=== PATIENT | male | born 1975 | race Caucasian/White ===

== ENCOUNTER 2017-11-30 17:28 | Emergency (ER) | payer BC, SELFPAY | END 2017-11-30 18:00 | disposition home or self-care (01) | LOC: ERS 17:28 | DX: F10.129 Alcohol abuse with intoxication, unspecified (principal); I10 Essential (primary) hypertension; F31.9 Bipolar disorder, unspecified; F41.9 Anxiety disorder, unspecified; F20.9 Schizophrenia, unspecified; F17.220 Nicotine dependence, chewing tobacco, uncomplicated; Z79.899 Other long term (current) drug therapy | CPT/HCPCS: 99283 ==

== ENCOUNTER 2017-12-16 06:56 | Observation (INO) | payer OTHER, SELFPAY ==
[2017-12-16] MEDS ORDERED: Morphine 4 MG/ML VIAL ONE ×2 (07:15→09:37)
[2017-12-16 07:18] LABS: #Lymphocytes 0.7 thou/uL (1.20-3.40); #Monocytes 0.3 thou/uL (0.11-0.59); #Neutrophils 5.7 thou/uL (1.40-6.50); %Basophils 0.2 % (0.0-1.0); %Eosinophils 0.7 % (0.0-10.0); %Lymphocytes 10.8 % (21.0-51.0); %Neutrophils 84.4 % (42.0-75.0); Hemoglobin 16.2 g/dL (14.0-18.0); Mean Corpuscular HGB CONC 33.3 g/dL (32.0-36.0); Mean Corpuscular Hemoglobin 34.5 pg (27.0-31.0); Mean Platelet Volume 7.9 fL (7.4-10.4); Platelet Count 260 thou/uL (130-400); RBC Distribution Width 11.7 % (11.5-14.5); Red Blood Cell (RBC) Count 4.69 mill/uL (4.70-6.10); White Blood Cell (WBC) Count 6.8 thou/uL (4.8-10.8)
[2017-12-16 07:37] LABS: ALT (SGPT) 274 U/L (8-55); AST (SGOT) 166 U/L (5-34); Albumin 4.4 g/dL (3.5-5.0); Alkaline Phosphatase 78 U/L (40-150); Anion Gap 18 mmol/L (10-20); BUN (Urea Nitrogen) 7 mg/dL (8.9-20.6); Bilirubin, Total 0.9 mg/dL (0.2-1.2); CK (CPK) 64 U/L (30-200); Calc. Creatinine Clearance 0 mL/min (70-130); Calcium 9.7 mg/dL (7.8-10.44); Carbon Dioxide 18 mmol/L (22-29); Chloride 104 mmol/L (98-107); Estimated GFR-MDRD 72; Globulin 4.1 g/dL (2.4-3.5); Glucose 145 mg/dL (70-105); Lipase 60 U/L (8-78); Magnesium 1.8 mg/dL (1.6-2.6); Protein, Total 8.5 g/dL (6.0-8.3); Sodium 136 mmol/L (136-145)
--- NOTE | 2017-12-16 07:39 | RAD ---
CHEST 1 VIEW: Date: 12/16/17 HISTORY: 42-year-old male with history of chest pain. COMPARISON: 04/12/16. FINDINGS: Monitor leads overlie the chest. The lungs are clear. No pneumonia, edema, or pleural effusion. IMPRESSION: No acute intrathoracic disease. Stable from prior study. POS: [facility]
[2017-12-16 07:41] LABS: CKMB 0.5 ng/mL (0-6.6); Troponin I Less than 0.010 ng/mL (< 0.028)
[2017-12-16] MEDS ORDERED: Ondansetron ODT 4 MG TAB ONE (08:01)
--- NOTE | 2017-12-16 08:37 | CT ---
CTA THORAX WITH CONTRAST CTA ABDOMEN WITH CONTRAST: (Computed Tomographic Angiography, chest(noncoronary) with contrast material, and image postprocessin g) (Computed Tomographic Angiography, abdomen with contrast material, and image postprocessing) Date: 12/16/17 Time: 0737 hours HISTORY: 42-year-old male with chest pain and dyspnea. Rule out aortic dissection. TECHNIQUE: IV injection of iodinated contrast: 100 mL [id number]-[id number]. Arterial phase bolus chasing technique. Scan acquisition from top of top of aortic arch to iliac crests. 3D coronal and sagittal MIP reconstructions. FINDINGS: There is no dissection, aneurysm, or rupture of the aorta. The gallbladder is distended, but there ar e no signs of acute cholecystitis. Within the limitations of an arterial phase only scan, no gross pa thology is identified involving the liver, adrenals, kidneys, pancreas, or spleen. There is severe mo tion artifact in the lowermost images at and slightly superior to the iliac crests. The bowel loops s uperior to that demonstrate no dilation or surrounding fat stranding. There is no mediastinal or jason r lymphadenopathy. No pleural effusion, cardiomegaly, pericardial effusion, or pneumothorax. Lungs ar e clear. Trachea and major bronchi are patent and clear. No destructive osseous lesion identified. Th oracic vertebral body heights are maintained. No high grade stenosis of the celiac artery, superior m esenteric artery, or bilateral renal arteries. IMPRESSION: Normal. justin[] POS: [facility]
[2017-12-16] MEDS ORDERED: Lorazepam 2 MG/ML VIAL ONE (09:21)
[2017-12-16 11:03] VITALS: BMI 29.2
[2017-12-16] MEDS ORDERED: Sodium Chloride 0.9% 1,000 ML IV SCH (11:27)
[2017-12-16 12:19] LABS: Troponin I Less than 0.010 ng/mL (< 0.028)
[2017-12-16] MEDS ORDERED: Lorazepam 2 MG/ML VIAL SLOW IVP PRN (12:21)
[2017-12-16] MEDS ORDERED: Ondansetron HCl/PF 4 MG/2 ML Vial IVP PRN ×2 (12:21→14:02)
[2017-12-16] MEDS ORDERED: Acetaminophen 325 MG TAB PO PRN (12:21)
[2017-12-16] MEDS ORDERED: hydrALAZINE 20 MG/ML VIAL SLOW IVP PRN (12:21)
[2017-12-16] MEDS ORDERED: Ondansetron ODT 4 MG TAB PO PRN (12:21)
[2017-12-16 13:18] LABS: #Lymphocytes 0.9 thou/uL (1.20-3.40); #Monocytes 0.5 thou/uL (0.11-0.59); #Neutrophils 4.5 thou/uL (1.40-6.50); %Basophils 0.2 % (0.0-1.0); %Eosinophils 0.4 % (0.0-10.0); %Lymphocytes 14.3 % (21.0-51.0); %Neutrophils 76.1 % (42.0-75.0); Hemoglobin 15.3 g/dL (14.0-18.0); Mean Corpuscular HGB CONC 33.1 g/dL (32.0-36.0); Mean Corpuscular Hemoglobin 34.1 pg (27.0-31.0); Mean Platelet Volume 7.5 fL (7.4-10.4); Platelet Count 240 thou/uL (130-400); RBC Distribution Width 11.6 % (11.5-14.5)
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
[2017-12-16 13:44] LABS: Troponin I Less than 0.010 ng/mL (< 0.028)
[2017-12-16 13:51] LABS: Amphetamine Not Detected (NotDetected); Barbiturates Screen Not Detected (NotDetected); Benzodiazepine Screen Detected (NotDetected); Cocaine Metabolite Screen Not Detected (NotDetected); Medtox Control Line Valid? VALID (VALID); Medtox Reader # READER 1; Methadone Not Detected (NotDetected); Methamphetamine Not Detected (NotDetected); Opiate Screen Detected (NotDetected); Oxycodone Screen Not Detected (NotDetected); Phencyclidine (PCP) Not Detected (NotDetected); THC/Cannabinoid Screen Not Detected (NotDetected); Tricyclic Screen Not Detected (NotDetected)
[2017-12-16] MEDS ORDERED: Ondansetron ODT 4 MG TAB SL PRN (14:02)
[2017-12-16] MEDS: Morphine 4 MG/ML VIAL SLOW IVP PRN ×2 (15:02→19:09)
[2017-12-16] MEDS: Sodium Chloride 0.9% 1,000 ML IV SCH ×2 (15:03→21:20)
[2017-12-16] MEDS: Piperacillin/Tazobactam 3.375 GM in Sodium Chloride 0.9% 100 ML IVPB SCH (16:52)
[2017-12-16] MEDS: Vancomycin HCl 1 GM in Premix Bag 1 BAG IVPB SCH (21:20)
[2017-12-17] MEDS: Piperacillin/Tazobactam 3.375 GM in Sodium Chloride 0.9% 100 ML IVPB SCH ×3 (00:50→11:59)
[2017-12-17] MEDS: Morphine 4 MG/ML VIAL IV PRN ×3 (00:54→09:15)
--- NOTE | 2017-12-17 01:17 | CON ---
DATE OF CONSULTATION: 12/16/2017 REQUESTING PHYSICIAN: Benito Jones MD REASON FOR CONSULTATION: Abdominal pain. HISTORY OF PRESENT ILLNESS: Tavon Live is a 42-year-old man previously seen by my [facility], Dr. Jeremy Freed. Mr. Live has a history of bipolar disorder and schizophrenia. He was seen by Dr. Freed during [facility] with complicated sigmoid di verticulitis and spontaneous perforation at that time. It appears that this was treated nonoperative ly with extended antibiotics. The patient was eventually discharged from the hospital then and he te lls me he never followed up with surgery and he never followed up for followup colonoscopy after that time. At any rate, he does not have any chronic gastrointestinal symptoms. He was admitted to the hospital earlier today after complaining of acute onset chest pain. He says t his was in the upper chest to mid chest and that it was radiating into the arms and he was having jose miguel ateral arm numbness. Notably, upon presentation, he was not complaining of any abdominal pain at all . He underwent a CT dissection protocol, which included chest and upper abdomen and this was normal. Lab workup was also unremarkable; however, at that point, he did start complaining of pain in his e pigastrium which is burning in nature and now he is also complaining of stabbing type pain in the low er abdomen. He is afebrile and hemodynamically stable and he also appears quite comfortable. There is no leukocytosis. He has been started on broad spectrum antibiotics and the labs are essentially u nremarkable except for some elevation in transaminases consistent with his known hepatitis C and photographer news misha alcohol use. The patient does take some ibuprofen from time to time. He is not on any acid supp ression. He states he had an EGD in the remote past, which showed erosive esophagitis. PAST MEDICAL HISTORY: Bipolar disorder, schizophrenia, chronic back pain, hypertension, seizures, he patitis C, alcohol abuse, complicated sigmoid diverticulitis 04/2016 with spontaneous microperforatio n at that time, treated non-operatively. ALLERGIES: No known drug allergies. OUTPATIENT MEDICATIONS: None. INPATIENT MEDICATIONS: Include IV vancomycin, IV Zosyn, morphine p.r.n. SOCIAL HISTORY: The patient is an inmate. He has been incarcerated over the past couple of weeks. He chews tobacco, used to be quite heavy, recently decreased this to about a 6 pack per day. FAMILY HISTORY: Noncontributory. PHYSICAL EXAMINATION: VITAL SIGNS: Temperature was 101.2 upon presentation, currently 99.8, pulse is 95, blood pressure 10 2/69, 97% oxygen saturation on room air. GENERAL: A 42-year-old man sitting up in bed, appearing very comfortable, in no acute distress. SKIN: No jaundice, no rashes were palpable. EYES: No scleral icterus. Extraocular movements intact. ENT: Mucous membranes moist, no oral lesions. LYMPH: No submandibular or supraclavicular lymphadenopathy. THYROID: Nontender to palpation. HEART: Regular rate and rhythm. LUNGS: Clear to auscultation bilaterally. ABDOMEN: Bowel sounds are present, soft, tender to palpation in the epigastrium and also in the midl ine lower abdomen, but no guarding, rebound tenderness. EXTREMITIES: No peripheral edema. VESSELS: Radial pulses 2+ bilaterally. NEUROLOGICAL: Cranial nerves II through XII intact bilaterally. No focal deficits. LABORATORY STUDIES: WBC 6.0, hemoglobin 15.3, platelets 240. Troponin negative. Lactic acid 1.4. BNP less than 10. TSH 3.5, lipase 60. CK 64. Total bilirubin 0.9, alkaline phosphatase 78, AST wilber vated to 166, ALT elevated to 274, albumin 4.4, BUN 7, creatinine 1.13. Urine drug screen positive f or opiates and benzos. IMAGING STUDIES: Chest x-ray was negative. CT of the chest and abdomen dissection protocol was all within normal limits, within limitations of the study. There was significant motion artifact in the lower abdomen. The pelvis was not imaged. ASSESSMENT AND PLAN: 1. Upper abdominal pain. 2. Lower abdominal pain. 3. Fever. 4. Prior history of complicated perforated sigmoid diverticulitis. The patient's presentation is a bit unusual and that his description of the pain location has kept changing through the day and he ac tually appears quite comfortable despite describing severe pain. On the other hand, he does have a f ever, and he does have a documented history of complicated perforated sigmoid diverticulitis a year a nd half ago for which he never followed up. He is complaining of some lower abdominal pain now thoug h this seems overshadowed by the upper abdominal pain. I agree with the empiric antibiotics in this case and I would go ahead and add IV Flagyl as well. I think we do need to repeat CT imaging this ti me of the abdomen and also the pelvis to assess for recurrent diverticulitis. I have ordered this up per abdominal pain symptoms do seem most consistent with a possible peptic ulcer disease for which he is at risk. We will go ahead and plan for upper endoscopy tomorrow morning as well. 5. Hepatitis C. 6. Alcohol abuse. The patient does have some transaminase elevation likely consistent with chronic alcohol liver disease and hepatitis C. Symptoms do not really seem biliary in origin.
[2017-12-17 04:57] LABS: Anion Gap 10 mmol/L (10-20); BUN (Urea Nitrogen) 7 mg/dL (8.9-20.6); Calc. Creatinine Clearance 130 mL/min (70-130); Calcium 8.5 mg/dL (7.8-10.44); Carbon Dioxide 21 mmol/L (22-29); Chloride 110 mmol/L (98-107); Estimated GFR-MDRD 84; Glucose 96 mg/dL (70-105); Potassium 3.9 mmol/L (3.5-5.1); Sodium 137 mmol/L (136-145)
[2017-12-17] MEDS: Sodium Chloride 0.9% 1,000 ML IV SCH ×2 (05:07→12:00)
[2017-12-17 05:14] LABS: Eosinophils 4 % (0-10); Hemoglobin 14.2 g/dL (14.0-18.0); Lymphocytes 37 % (21-51); MDiff Complete? YES; Mean Corpuscular HGB CONC 33.5 g/dL (32.0-36.0); Mean Corpuscular Hemoglobin 35.1 pg (27.0-31.0); Mean Platelet Volume 7.7 fL (7.4-10.4); Monocytes 5 % (0-10); Neutrophil 53 % (42-75); PLT Morphology Comment Appears Adequate; Platelet Count 192 thou/uL (130-400); RBC Distribution Width 11.8 % (11.5-14.5); Red Blood Cell (RBC) Count 4.03 mill/uL (4.70-6.10); White Blood Cell (WBC) Count 3.4 thou/uL (4.8-10.8)
[2017-12-17] MEDS: Vancomycin HCl 1 GM in Premix Bag 1 BAG IVPB SCH (08:57)
[2017-12-17] MEDS ORDERED: Enoxaparin Sodium 40 MG/0.4 ML SYRINGE SC SCH (09:00)
[2017-12-17] MEDS ORDERED: Morphine Sulfate 2 MG/ML SYRINGE SLOW IVP PRN ×2 (10:48)
[2017-12-17] MEDS ORDERED: HYDROmorphone 2 MG/ML VIAL SLOW IVP PRN ×2 (10:48)
[2017-12-17] MEDS ORDERED: Ondansetron HCl/PF 4 MG/2 ML Vial IVP PRN ×2 (10:48)
[2017-12-17] MEDS ORDERED: Ketorolac Tromethamine 30 MG/ML VIAL IVP PRN ×2 (10:48)
--- NOTE | 2017-12-17 11:22 | OP ---
DATE OF PROCEDURE: 12/17/2017 GI ENDOSCOPY NOTE SURGEON: Duglas Barr M.D. MEAT TEAM MEMBER SURGEON: None. PROCEDURE: Esophagogastroduodenoscopy, diagnostic. INDICATIONS: 1. Epigastric pain. 2. Fever. MEDICATIONS: See anesthesia record. FINDINGS: After discussion of the risks, benefits, and alternatives of the procedure, informed conse nt was obtained and witnessed. Pre-endoscopic cardiopulmonary examination was satisfactory. Timeout was performed before sedation was achieved. Sedation was achieved with Anesthesia assistance in the endoscopy unit. A Pentax adult upper endoscope was placed into the oropharynx and passed through th e cricopharyngeus under direct visualization. In the distal esophagus, there was LA grade B erosive esophagitis with a few small shallow nonbleeding erosions, mostly near the GE junction. No evidence of bleeding. The endoscope was advanced forward into the stomach. Forward and retroflexed views of the entire gastric mucosa were obtained. The gastric mucosa appears normal. The endoscope was passe d through the pylorus and into the first and second portions of the duodenum, which also appeared nor mal. The upper endoscope was then completely withdrawn and the patient was allowed to recover. The patient tolerated the procedure well. There were no immediate post-procedure complications. IMPRESSION: 1. LA grade B distal erosive esophagitis. 2. Otherwise, normal esophagogastroduodenoscopy. RECOMMENDATIONS: 1. Proceed with CT of the abdomen and pelvis to rule out recurrent diverticulitis. 2. Daily oral proton pump inhibitor. I have written for Protonix 40 mg once daily.
[2017-12-17 11:47] VITALS: BP 138/79; TEMP 99.2
--- NOTE | 2017-12-17 14:04 | CT ---
CT ABDOMEN AND PELVIS WITH IV AND ORAL CONTRAST: Date: 12/17/17 HISTORY: Abdomen and pelvic pain. FINDINGS: Lung bases are clear. The liver, spleen, kidneys, adrenal glands, and pancreas are unremarkable. Urin emmanuel bladder is incompletely distended. Nonspecific lymph nodes are scattered about the mesentery. Appendix is not inflamed. Scattered diverticula arise from the colon without adjacent inflammation. IMPRESSION: Diverticulosis. No evidence of diverticulitis. POS: [facility]
--- NOTE | 2017-12-17 14:38 | PDOC.PN ---
- Subjective Encounter Start Date: 12/17/17 Encounter Start Time: 14:36 Mr. Live was seen today in follow-up of abdominal pain. He says he continues to have some abdominal pain. - Objective Resuscitation Status: Resuscitation Status FULL:Full Resuscitation MAR Reviewed: Yes Vital Signs & Weight: Vital Signs (12 hours) Temp Pulse Resp BP Pulse Ox 12/17/17 11:10 99.2 F 85 20 138/79 98 12/17/17 10:37 97.7 F 84 18 12/17/17 07:55 97.7 F 84 18 138/93 H 97 12/17/17 04:15 98.9 F 107 H 16 127/88 95 Weight Weight 204 lb 4.8 oz I&O: 12/16/17 12/17/17 12/18/17 06:59 06:59 06:59 Intake Total 2948 1475 Output Total 3100 500 Balance -152 975 Result Diagrams: 12/17/17 04:34 12/17/17 04:34 Additional Labs: Accuchecks 12/16/17 11:36 POC Glucose 97 Phys Exam - Physical Examination HEENT: PERRLA Respiratory: no wheezing, no rales, no rhonchi, clear to auscultation bilateral Cardiovascular: RRR, no significant murmur, no rub Gastrointestinal: soft, non-tender, no distention, positive bowel sounds Musculoskeletal: no edema Dx/Plan (1) Abdominal pain Code(s): R10.9 - UNSPECIFIED ABDOMINAL PAIN Status: Acute (2) Diverticulosis Code(s): K57.90 - DVRTCLOS OF INTEST, PART UNSP, W/O PERF OR ABSCESS W/O BLEED Status: Acute - Plan * Abdominal pain- ? etiology, however he does not have any worrisome features * Will advance diet, and stable for discharge .
[2017-12-17] MEDS ORDERED: Lidocaine 1% PF 5 ML VIAL ONE (17:06)
[2017-12-17] MEDS ORDERED: PROPOFOL 200 MG/20 ML VIAL ONE (17:06)
--- NOTE | 2017-12-17 21:23 | DIS ---
PRIMARY CARE PHYSICIAN: The patient currently does not have a primary care physician. DATE OF ADMISSION: 12/16/2017 DATE OF DISCHARGE: 12/17/2017 DISCHARGE DISPOSITION: Back to nursing home. DISCHARGE DIAGNOSES: 1. Abdominal pain. 2. Chest pain. 3. History of Crohn's disease. 4. History of hepatitis C. 5. Diverticulosis. 6. Chronic low back pain. DISCHARGE MEDICATIONS: None. CODE STATUS: FULL CODE. ALLERGIES: No known drug allergies. PROCEDURES DONE DURING ADMISSION: The patient had a CT dissection protocol of the chest, which was n egative for dissection, negative for any infiltrates. The patient also had a CT scan of the abdomen and pelvis, which was significant for diverticulosis, but without evidence of diverticulitis. There was no evidence of obstruction nor perforation. The patient had an upper endoscopy, which was essent ially negative except for some evidence of grade B erosive gastritis. HOSPITAL COURSE: Mr. Live is a pleasant 42-year-old gentleman who presented to the emergency room initially with complaints of chest pain; however, by the time I came to evaluate him, the pain seeme d to migrate downwards towards the abdomen. He had an EKG, which was negative and had serial cardiac enzymes, which were all negative and he was seen by Gastroenterology with regard to the abdominal pa in, which is more epigastric in location. He had an upper endoscopy, which was significant for prima rily esophagitis. The remainder of the workup was essentially negative. He was still asking for shira cotic pain medications at the time of discharge; however, he did not seem to be in pain and would occ asionally forget about the medications when the nurse talked to him and he was a bit distracted. He may have had some type of viral syndrome, as he did have some fever and tachycardia, which began to i mprove during the course of the admission. Blood cultures were done, but these were negative and the re was no significant leukocytosis. He is therefore stable and will be discharged home. Initially, I mentioned no medications, but we will be sending him home on Protonix 40 mg daily.
== END 2017-12-17 15:53 | disposition home or self-care (01) ==
LOC: ERS 06:56 → EEVIPCON 10:12 → 2SW 10:12
PROVIDERS: ADMIT Internal Medicine; ATTEND Internal Medicine
PROC: 0DJ08ZZ Inspection of Upper Intestinal Tract, Via Natural or Artificial Opening Endoscopic (ICD-10-PCS; principal; 2017-12-16)
DX: R10.30 Lower abdominal pain, unspecified (principal); R10.10 Upper abdominal pain, unspecified; R10.13 Epigastric pain; R07.9 Chest pain, unspecified; K50.90 Crohn's disease, unspecified, without complications; B19.20 Unspecified viral hepatitis C without hepatic coma; K57.90 Diverticulosis of intestine, part unspecified, without perforation or abscess without bleeding; M54.5 Low back pain; G89.29 Other chronic pain; K22.10 Ulcer of esophagus without bleeding; F31.9 Bipolar disorder, unspecified; F20.9 Schizophrenia, unspecified; I10 Essential (primary) hypertension; R56.9 Unspecified convulsions; F10.10 Alcohol abuse, uncomplicated; Z87.891 Personal history of nicotine dependence
CPT/HCPCS: 36415; 36416; 71045; 71275; 74177; 80048; 80053; 80306; 82553; 83605; 83690; 83735; 83880; 84443; 84484; 85025; 87040; 90471; 90732; 93005; 96361; 96365; 96366; 96374; 96375; 96376; A4216; G0009; G0378; J1650; J2001; J2060; J2270; J2543; J2704; J3370; J7050; Q0162

== ENCOUNTER 2017-12-17 22:08 | Inpatient (IN) | payer OTHER, SELFPAY ==
[2017-12-17] MEDS ORDERED: Ondansetron ODT 4 MG TAB ONE (22:41)
[2017-12-17] MEDS ORDERED: cefTRIAXone\\ROCEPHIN 2 GM VIAL ONE (22:41)
[2017-12-17] MEDS ORDERED: Sodium Chloride 0.9% 100 ML ONE (22:41)
[2017-12-17] MEDS ORDERED: Ketorolac Tromethamine 30 MG/ML VIAL ONE (22:41)
[2017-12-17 22:48] LABS: #Eosinphils 0.1 thou/uL (0.0-0.7); #Lymphocytes 1.9 thou/uL (1.20-3.40); #Monocytes 1.2 thou/uL (0.11-0.59); #Neutrophils 4.7 thou/uL (1.40-6.50); %Basophils 0.4 % (0.0-1.0); %Eosinophils 0.7 % (0.0-10.0); %Lymphocytes 24.5 % (21.0-51.0); %Monocytes 14.8 % (0.0-10.0); %Neutrophils 59.7 % (42.0-75.0); Hemoglobin 14.8 g/dL (14.0-18.0); Mean Corpuscular HGB CONC 34.2 g/dL (32.0-36.0); Mean Corpuscular Hemoglobin 34.8 pg (27.0-31.0); Mean Platelet Volume 7.4 fL (7.4-10.4); Platelet Count 209 thou/uL (130-400); RBC Distribution Width 11.5 % (11.5-14.5); Red Blood Cell (RBC) Count 4.25 mill/uL (4.70-6.10); White Blood Cell (WBC) Count 7.9 thou/uL (4.8-10.8)
[2017-12-17 22:50] LABS: Base Excess-Venous -0.8 mmol/L (0 (+/- 2.5)); Bicarbonate (HCO3v) 22.2 mmol/L (1.0-85.0); CO2 Tension (PvCO2) 32.3 mmHg (41.0-51.0); Calcium, Ionized 1.07 mmol/L (1.12-1.32); Hemoglobin - Calc 16.8 g/dL (12.0-18.0); O2 Tension (PvO2) 44.9 mmHg (35.0-45.0); Potassium 3.5 mmol/L (3.4-4.7); T. Carbon Dioxide 23.2 mmol/L (1.0-85.0); pH (Venous) 7.446 (7.35-7.45); vO2 Saturation-calc 83.2 % (94-98)
[2017-12-17 23:08] LABS: ALT (SGPT) 162 U/L (8-55); AST (SGOT) 89 U/L (5-34); Albumin 4.2 g/dL (3.5-5.0); Alkaline Phosphatase 57 U/L (40-150); Anion Gap 15 mmol/L (10-20); BUN (Urea Nitrogen) 8 mg/dL (8.9-20.6); Bilirubin, Total 0.6 mg/dL (0.2-1.2); Calc. Creatinine Clearance 0 mL/min (70-130); Calcium 9.1 mg/dL (7.8-10.44); Carbon Dioxide 19 mmol/L (22-29); Chloride 106 mmol/L (98-107); Estimated GFR-MDRD 80; Glucose 94 mg/dL (70-105); Potassium 4.1 mmol/L (3.5-5.1); Protein, Total 8.2 g/dL (6.0-8.3); Sodium 136 mmol/L (136-145)
--- NOTE | 2017-12-17 23:10 | RAD ---
PORTABLE AP CHEST X-RAY 12/17/17 HISTORY: Elevated temperature. Lower abdominal pain with nausea and vomiting. Fever. COMPARISON: 12/16/17. FINDINGS: The cardiac silhouette and pulmonary vasculature are within normal limits. The inferior right lateral costophrenic angle is excluded from view, but no large pleural effusion is seen and lungs are otherw ise clear. The cardiac silhouette and pulmonary vasculature are within normal limits. There has been no interval change from prior study. IMPRESSION: No acute cardiopulmonary process. POS: [facility]
[2017-12-18] MEDS ORDERED: Ondansetron ODT 4 MG TAB SL PRN (01:05)
[2017-12-18] MEDS ORDERED: Ondansetron HCl/PF 4 MG/2 ML Vial IVP PRN (01:05)
[2017-12-18] MEDS: Sodium Chloride 0.9% 1,000 ML IV SCH ×2 (01:16→10:55)
[2017-12-18 01:59] VITALS: BMI 28.5
[2017-12-18] MEDS ORDERED: Vancomycin HCl 1 GM in Premix Bag 1 BAG IVPB SCH (02:00)
[2017-12-18] MEDS ORDERED: Acetaminophen 325 MG TAB PO PRN ×2 (02:05)
[2017-12-18] MEDS ORDERED: Acetaminophen/Codeine 30-300mg Tablet PO PRN (02:05)
[2017-12-18] MEDS: Acetaminophen/Codeine 30-300mg Tablet PO PRN ×2 (02:16→08:43)
[2017-12-18] MEDS ORDERED: Clindamycin/D5W 900 MG in Premix Bag 1 BAG IVPB SCH (06:00)
[2017-12-18] MEDS: Thiamine HCl 100 MG, Admixture Fee 1 EACH in Sodium Chloride 0.9% 50 ML IVPB SCH (12:53)
--- NOTE | 2017-12-18 13:03 | HP ---
DATE OF ADMISSION: 12/18/2017. CHIEF COMPLAINT: Fever. HISTORY OF PRESENT ILLNESS: This is a 42-year-old young white male who is a resident of shelter and has recently been admitted 2 days ago and was discharged yesterday after thorough evaluation of his abdo jax pain. The patient yesterday came with abdominal pain and had a thorough evaluation with CT sca n, which did not reveal any evidence of a diverticulitis, which he had in the past. Today, the patie nt was reassured and was sent back to the shelter. In the shelter, the patient was having fever and accord ing to the authorities, it was 103, and the patient returned back to the ER today and had a regular w orkup again, which was unremarkable, but he continues to have fever of 100.3 with no other source of infection could be found. He had influenza A and B testing, which was negative, but he had a marked elevation of liver enzymes with AST and ALT of 89 and 162. The patient did complain of the right upp er quadrant pain and tenderness on deep palpation. He denies having any chest pain. He does also co mplain of some sore throat. No history of any sick contact at the shelter. No dizziness, no headache, no neck stiffness. Complains of pain of 7/10 in intensity in the right up per quadrant, not radiating, associated with severe nausea and vomiting, and the patient is unable to keep anything down and requesting for pain medications. PAST MEDICAL HISTORY: The patient has a history of Crohn's disease, history of hepatitis C and diver ticulitis. He has a history of lumbar disk disease. PAST SURGICAL HISTORY: Had spinal injections in the past. ALLERGIES: No known drug allergies. SOCIAL HISTORY: The patient is a former smoker, quit smoking 8 years ago. He smokes about half a pa ck a day. He is in shelter because of his drinking habit. FAMILY HISTORY: Significant for diabetes and heart disease. CURRENT MEDICATIONS: Tramadol, Vicodin and ibuprofen. REVIEW OF SYSTEMS: All 12 systems were reviewed with the patient thoroughly and found to be negative at this time. Systems reviewed are HEENT, CVS, BROACH SETTER, respiratory. Constitutional: Weight loss or gain, sense of well-being, ability to conduct usual activities, exerc ise tolerance. Skin/Breast: Rash, itching, changes in hair growth or loss, nail changes, breast lumps, tenderness, swelling, nipple discharge. Eyes: Vision, double vision, tearing, blind spots, pain. ENT/Mouth: Headaches (location, time of onset, duration, precipitating factors), vertigo, lightheadedness, injury. Vision, double vision, tearing, blind spots, pain, nose b leeding, colds, obstruction, discharge, dental difficulties, gingival bleeding, dentures, neck stiffn ess, pain, tenderness, masses in thyroid or other areas Cardiovascular: Precordial pain, substernal distress, palpitations, syncope, dyspnea on exertion, or thopnea, nocturnal paroxysmal dyspnea, edema, cyanosis, hypertension, heart murmurs, varicosities, ph lebitis, claudication. Respiratory: Pain, shortness of breath, wheezing, stridor, cough, hemoptysis, fever or night sweats Gastrointestinal: Poor appetite, dysphagia, indigestion, abdominal pain, heartburn, eructation, naus ea, vomiting, hematemesis, jaundice, constipation, or diarrhea, abnormal stools (ashley-colored, tarry, bloody, greasy, foul smelling), flatulence, hemorrhoids, recent changes in bowel habits. Genitourinary: Urgency, frequency, dysuria, nocturia, hematuria, polyuria, oliguria, unusual (or kelley nge in) color of urine, stones, hesitancy, change in size of stream, dribbling, acute retention or in continence, libido, potency. Musculoskeletal: Pain, swelling, redness or heat of muscles or joints, limitation, of motion, muscular weakness, atrophy, cramps. Neurologic/Psychiatric: Convulsions, paralyses, tremor, incoordination, parasthesias, difficulties w ith memory of speech, sensory or motor disturbances, or muscular coordination (ataxia, tremor), emoti onal problems, anxiety, depression, previous psychiatric care, unusual perceptions, hallucinations. Allergy/Immunologic: Skin rash, anemia, bleeding tendency, polydipsia, polyuria, intolerance to heat or cold. PHYSICAL EXAMINATION: VITAL SIGNS: Blood pressures are 128/82, heart rate is 68, temperature is 99.8, respirations 16, sat urating 96%. GENERAL: The patient is alert and oriented, does not appear to be in acute distress, though he compl ained of right upper quadrant pain. HEENT: Atraumatic, normocephalic. PERRLA. Extraocular movements were intact. Oral mucosa pink and moist. CARDIOVASCULAR: S1, S2 normal. No murmurs, rubs or gallops. LUNGS: Bilateral air entry was equal. No wheezing, no crackles. ABDOMEN: Soft and nontender. No guarding. No rebound tenderness. Bowel sounds normal. MUSCULOSKELETAL: No calf tenderness. No pedal edema. No joint tenderness. No joint swelling. SKIN: No cyanosis, no erythema, no rash, no pallor. NEUROLOGIC: Cranial nerve examination II-XII intact. No focal deficits were noted at this time. PSYCHIATRIC: No signs of suicidal ideation. No signs of greg. LABORATORY DATA: WBC 7.9, hemoglobin 14.8, hematocrit 43.3. Sodium is 140, potassium is 3.5, chlori de is 108, BUN is 8, creatinine 1.02, AST 89, ALT is 162. ASSESSMENT AND PLAN: 1. Fever of unknown source. 2. Acute hepatitis. 3. Rule out gallbladder disease with right upper quadrant pain. 4. History of Crohn's disease. 5. History of chronic alcoholism. PLAN: 1. Plan is to admit this patient and rule out evidence of gallbladder disease at this time as the drea mancia has a fever with right upper quadrant pain and marked elevation of the liver enzymes. The bessie ent is already started antibiotics with vancomycin and clindamycin. 2. The patient will be evaluated for other sources of infection like strep throat which would also c ause a fever of 103, but he does not have any lymphadenopathy. 3. The patient has a history of Crohn's disease. No evidence of any diarrhea, but he continues to h ave nausea and vomiting. We will closely monitor and the patient has persistent abdominal pain, need to consult GI at that time. 4. The patient has a history of chronic alcoholism for which he is undergoing a shelter term. 5. We will closely monitor. We will start the patient on thiamine. 6. DVT prophylaxis, on Lovenox. I spent 75 minutes with this patient.
--- NOTE | 2017-12-18 13:35 | ULT ---
RIGHT UPPER QUADRANT ULTRASOUND: Date: 12/18/17 COMPARISON: None. HISTORY: 42-year-old male with history of right upper quadrant pain. TECHNIQUE: Multiplanar Larson scale sonographic imaging of the right upper quadrant obtained. FINDINGS: The pancreas is obscured by bowel gas. There is no focal liver lesion or intrahepatic biliary dilatation. The common bile duct measures approximately 5-6 mm, within normal limits. No gallbladder wall thickening or pericholecystic fluid. Gallbladder is mildly distended with no evid ence for cholelithiasis. The motor equipment captain reports a negative Moon's sign. The right kidney measures 10.8 cm in craniocaudal dimension and demonstrates no stone, hydronephrosis , or mass lesion. IMPRESSION: Distended gallbladder with no evidence for cholelithiasis, cholecystitis, or biliary dilatation. POS: SARI
[2017-12-18] MEDS: Morphine 4 MG/ML VIAL IV PRN ×3 (14:17→21:58)
[2017-12-18] MEDS ORDERED: GoLYTELY 4,000 ml Bottle PO SCH (15:45)
[2017-12-18] MEDS: metroNIDAZOLE 500 MG in Premix Bag 1 BAG IVPB SCH (17:07)
--- NOTE | 2017-12-18 18:56 | CON ---
DATE OF CONSULTATION: 12/18/2017 REQUESTING PHYSICIAN: Octavio Singh MD REASON FOR CONSULTATION: Fever and abdominal pain. HISTORY OF PRESENT ILLNESS: Tavon Live is a 42-year-old man who was recently discharged from the [facility] yesterday, but now readmitted with continuing fevers and abdominal pain. Please see my consu ltation note from 12/16/2017 for further details of the presentation. We performed a CT of the abdom en and pelvis which was essentially negative and did not show any evidence of recurrent diverticuliti s. We performed an EGD, which was essentially normal. He had some LFT elevation which was thought l ikely due to his chronic hepatitis C. After discharge from the hospital, he continued to spike fever s at [facility]. He had a fever up to 103. He says his abdominal pain is continued. He continues to be a ll over the abdomen basically migratory involves the epigastrium sometimes the right upper quadrant o ften the lower abdomen in the midline of the left lower quadrant. He has had a few loose stools rece ntly. No melena or hematochezia. Upon admission this time, LFTs remain elevated to a lesser degree with AST 89, ALT 162, normal total bilirubin 0.6. There is no anemia. He had an abdominal ultrasoun d earlier today and this demonstrated distended appearing gallbladder, but no evidence of cholecystit is, no pericholecystic fluid or gallbladder wall thickening and a normal common bile duct 5-6 mm. He has again reported a prior diagnosis of Crohn's, though there has been no evidence of that on Dr. Cornejo evaluation from last year. REVIEW OF SYSTEMS: Full review of systems including constitutional, head, eyes, ears, nose, throat, GI, , cardiovascular, respiratory, musculoskeletal, and neurologic systems is negative except as no kim in the HPI. PAST MEDICAL HISTORY: Bipolar disorder, schizophrenia, chronic back pain, hypertension, seizures, he patitis C, alcohol abuse, complicated sigmoid diverticulitis in 04/2016 with spontaneous microperfora tion at that time, treated non-operatively. ALLERGIES: No known drug allergies. OUTPATIENT MEDICATIONS: None. INPATIENT MEDICATIONS: The patient was started on IV Flagyl and thiamine. He received a dose of IV ceftriaxone and IV vancomycin. SOCIAL HISTORY: The patient is an inmate. He has been incarcerated over the past couple of weeks. He chews tobacco. Alcohol use is ongoing, recently decreased to about a 6 pack of beer per day. FAMILY HISTORY: Noncontributory. PHYSICAL EXAMINATION: VITAL SIGNS: Temperature 99.8, was up to 103 last night; pulse 68; blood pressure 128/82; 92% oxygen saturation on room air. GENERAL: No acute distress. SKIN: No jaundice. No rashes were palpable. EYES: No scleral icterus. Extraocular movements intact. ENT: Mucous membranes moist. No oral lesions. LYMPH: No submandibular or supraclavicular lymphadenopathy. THYROID: Nontender to palpation. HEART: Regular rate and rhythm. LUNGS: Clear to auscultation bilaterally. ABDOMEN: Bowel sounds present, soft, some tenderness to palpation diffusely. This is mild with no g uarding, rebound tenderness. EXTREMITIES: No peripheral edema. VESSELS: Radial pulses 2+ bilaterally. NEUROLOGICAL: Cranial nerves II-XII intact bilaterally. No focal deficits. LABORATORY STUDIES: WBC 7.9, hemoglobin 14.8, platelets 209. Sodium 140, potassium 3.5, BUN 8, crea tinine 1.02, total bilirubin 0.6, alkaline phosphatase 57, AST 89, ALT 162. ASSESSMENT AND PLAN: 1. Generalized abdominal pain, unclear etiology. 2. Fever of unknown origin. 3. Elevated liver function tests, stable, likely secondary to hepatitis C. I discussed with the patient that as yet we really have no good explanation for his fevers and abdomi nal pain. Agree with stool studies for infectious pathogens, which has been ordered, though note he did not complain of any diarrhea until this presentation. His abdominal CT and upper endoscopy were negative over the past 2 days. Abdominal ultrasound does not show any evidence of cholecystitis. It would be reasonable to proceed with colonoscopy tomorrow. If this is negative, then would obtain a HIDA scan. Thank you for the consultation. Please call with questions or concerns.
[2017-12-19] MEDS: metroNIDAZOLE 500 MG in Premix Bag 1 BAG IVPB SCH ×6 (00:25→23:43)
[2017-12-19] MEDS ORDERED: GoLYTELY 4,000 ml Bottle PO SCH (00:30)
[2017-12-19] MEDS: Morphine 4 MG/ML VIAL IV PRN ×5 (02:02→23:44)
[2017-12-19] MEDS ORDERED: Promethazine HCl 25 MG/ML VIAL SLOW IVP PRN (09:24)
[2017-12-19] MEDS ORDERED: Ondansetron HCl/PF 4 MG/2 ML Vial IVP PRN (09:24)
[2017-12-19] MEDS ORDERED: Promethazine HCl 25 MG/ML VIAL IM PRN (09:24)
--- NOTE | 2017-12-19 10:24 | OP ---
SURGEON: Duglas Barr M.D. COMMUNICATION ENGINEER SURGEON: None. PROCEDURE: Colonoscopy, diagnostic. INDICATIONS: 1. Generalized abdominal pain. 2. Fever of unknown origin. 3. Prior history of diverticulitis. 4. Reported prior history of Crohn disease. MEDICATIONS: See anesthesia record. FINDINGS: After discussion of the risks, benefits and alternatives of the procedure, informed consen t was obtained and witnessed. Pre-endoscopic cardiopulmonary examination was satisfactory. Timeout was performed before sedation was achieved. Sedation was achieved with anesthesia assistance in the endoscopy unit. Digital rectal exam was performed, which was unremarkable. A Pentax adult colonosco pe was inserted into the anus and passed forward to the cecum in the usual fashion. The cecal base w as identified by the appendiceal orifice as well as the ileocecal valve. The terminal ileum was intu bated and the ileal mucosa was examined to a distance of about 15 cm and appeared completely normal. The colonoscope was then completely withdrawn in a gradual and circumferential manner with careful e xamination of the entire colonic mucosa. The quality of the prep was good. There was some diverticu losis in the sigmoid colon. No evidence of diverticulitis. No evidence of any mucosal abnormalities . Retroflexion in the rectum demonstrated some small internal hemorrhoids. The colonoscope was comp letely withdrawn and the patient allowed to recover. The patient tolerated the procedure well. Ther e were no immediate post-procedure complications. IMPRESSION: 1. Sigmoid diverticulosis. 2. Small internal hemorrhoids. 3. Otherwise, normal colonoscopy to the terminal ileum. RECOMMENDATIONS: Would proceed with a HIDA scan. Note, all other abdominal workup has been negative. LFTs have been mildly elevated, possibly just due to his chronic hepatitis C.
[2017-12-19] MEDS ORDERED: PROPOFOL 200 MG/20 ML VIAL ONE (11:33)
[2017-12-19] MEDS ORDERED: Lidocaine 1% PF 5 ML VIAL ONE (11:33)
[2017-12-19] MEDS: Thiamine HCl 100 MG, Admixture Fee 1 EACH in Sodium Chloride 0.9% 50 ML IVPB SCH (14:39)
--- NOTE | 2017-12-19 15:39 | PDOC.PN ---
- Subjective Encounter Start Date: 12/19/17 Encounter Start Time: 14:00 PAtient is seen today, alert and oriented. he returned from Colonoscopy, No fever noted today. waiitng on HIDA scan today. - Objective MAR Reviewed: Yes Vital Signs & Weight: Vital Signs (12 hours) Temp Pulse Resp BP Pulse Ox 12/19/17 08:18 98.7 F 78 16 110/72 98 12/19/17 08:00 98.7 F 78 16 12/19/17 04:00 99.1 F 94 20 109/75 94 L Weight Admit Weight 205 lb Weight 205 lb I&O: 12/18/17 12/19/17 12/20/17 06:59 06:59 06:59 Intake Total 480 7650 Output Total 1200 850 Balance -720 6800 Result Diagrams: 12/17/17 22:40 12/17/17 22:40 Radiology Reviewed by me: Yes Phys Exam - Physical Examination HEENT: PERRLA, moist MMs Neck: no nodes, no JVD Respiratory: no wheezing, no rales Cardiovascular: RRR, no significant murmur Gastrointestinal: soft, non-tender Musculoskeletal: no edema, pulses present Neurological: non-focal, normal sensation Lymphatic: no nodes Psychiatric: normal affect, A&O x 3 Skin: no rash, normal turgor Dx/Plan (1) Abdominal pain Code(s): R10.9 - UNSPECIFIED ABDOMINAL PAIN Status: Acute Qualifiers: Abdominal location: right upper quadrant Qualified Code(s): R10.11 - Right upper quadrant pain Comment: US showed Dilated gallbladder, with evidence of inflammation, pending HIDA scan now. will continue IV antibitoics, Follow GI recommedations. Colonoscopy was normal. (2) Chronic pain Code(s): G89.29 - OTHER CHRONIC PAIN Status: Acute Qualifiers: Chronic pain type: chronic pain syndrome Qualified Code(s): G89.4 - Chronic pain syndrome (3) ETOH abuse Code(s): F10.10 - ALCOHOL ABUSE, UNCOMPLICATED Status: Chronic Comment: No withdrawls noted, pt came from retirement for DWI. (4) History of hepatitis C Code(s): Z86.19 - PERSONAL HISTORY OF OTHER INFECTIOUS AND PARASITIC DISEASES Status: Chronic Comment: chronic, mild elevated Liver Enzymes. (5) Hypertension Code(s): I10 - ESSENTIAL (PRIMARY) HYPERTENSION Status: Chronic Comment: well controlled. (6) Transaminitis Code(s): R74.0 - NONSPEC ELEV OF LEVELS OF TRANSAMNS & LACTIC ACID DEHYDRGNSE Status: Chronic Comment: stbale. No worseing noted. - Plan cont current plan of care, continue antibiotics, PT/OT, health and social care teacher, DVT proph w/lovenox * . - Discharge Day Encounter end time: 14:35 Review of Systems - Review of Systems Eyes: negative: Pain, Vision Change, Conjunctivae Inflammation, Eyelid Inflammation, Redness, Other ENT: negative: Ear Pain, Ear Discharge, Nose Pain, Nose Discharge, Nose Congestion, Mouth Pain, Mouth Swelling, Throat Pain, Throat Swelling, Other Respiratory: negative: Cough, Dry, Shortness of Breath, Hemoptysis, SOB with Excertion, Pleuritic Pain, Sputum, Wheezing Cardiovascular: negative: chest pain, palpitations, orthopnea, paroxysmal nocturnal dyspnea, edema, light headedness, other Gastrointestinal: Abdominal Pain. negative: Nausea, Vomiting, Diarrhea, Constipation, Melena, Hematochezia, Other Musculoskeletal: negative: Neck Pain, Shoulder Pain, Arm Pain, Back Pain, Hand Pain, Leg Pain, Foot Pain, Other - Medications/Allergies Allergies/Adverse Reactions: Allergies Allergy/AdvReac Type Severity Reaction Status Date / Time No Known Allergies Allergy Verified 12/18/17 01:46 Medications: Current Medications Thiamine HCl 100 mg/Miscellaneous Medication 1 each/ Sodium Chloride 51 mls @ 100 mls/hr IVPB Q24HR [facility] Last Admin: 12/19/17 14:39 Dose: 51 mls Metronidazole 500 mg/ Device 100 mls @ 100 mls/hr IVPB Q6HR [facility] Last Admin: 12/19/17 15:35 Dose: 100 mls Morphine Sulfate (Morphine) 2 mg IV Q4H PRN PRN Reason: Pain Last Admin: 12/19/17 14:36 Dose: 2 mg Sodium Chloride (Flush - Normal Saline) 10 ml IVF Q12HR [facility] Last Admin: 12/19/17 08:34 Dose: 10 ml Sodium Chloride (Flush - Normal Saline) 10 ml IVF PRN PRN PRN Reason: Saline Flush
--- NOTE | 2017-12-19 16:08 | NM ---
HEPATOBILIARY STUDY: 12/19/2017 HISTORY: Abdominal pain and fever. RADIOPHARMACEUTICAL: Technetium 99m mebrofenin 5.2 millicuries IV. MEDICATION: CCK analog 1.7 mcg IV. FINDINGS: Sequential anterior imaging is obtained. There is prompt uptake and excretion of radiotracer by the liver, with faint visualization of the gallbladder at 7 minutes, with increase in activity in the gal lbladder up to 60 minutes. Bowel activity is visualized by 52 minutes. CCK analog was infused intravenously after 60 minutes of imaging. A gallbladder ejection fraction of 88% was obtained, which is within normal limits. IMPRESSION: 1. No evidence of a cystic or common duct obstruction. 2. Normal gallbladder ejection fraction. POS: CARLOS
[2017-12-20] MEDS: metroNIDAZOLE 500 MG in Premix Bag 1 BAG IVPB SCH ×2 (05:14→11:12)
[2017-12-20] MEDS: Morphine 4 MG/ML VIAL IV PRN ×3 (05:17→14:21)
[2017-12-20 12:54] LABS: ALT (SGPT) 81 U/L (8-55); AST (SGOT) 48 U/L (5-34); Albumin 3.9 g/dL (3.5-5.0); Alkaline Phosphatase 52 U/L (40-150); Anion Gap 12 mmol/L (10-20); BUN (Urea Nitrogen) 7 mg/dL (8.9-20.6); Bilirubin, Total 0.5 mg/dL (0.2-1.2); Calc. Creatinine Clearance 141 mL/min (70-130); Calcium 8.9 mg/dL (7.8-10.44); Carbon Dioxide 24 mmol/L (22-29); Chloride 106 mmol/L (98-107); Estimated GFR-MDRD Greater than 90; Globulin 3.7 g/dL (2.4-3.5); Glucose 79 mg/dL (70-105); Potassium 3.9 mmol/L (3.5-5.1); Protein, Total 7.6 g/dL (6.0-8.3); Sodium 138 mmol/L (136-145)
[2017-12-20] MEDS: Thiamine HCl 100 MG, Admixture Fee 1 EACH in Sodium Chloride 0.9% 50 ML IVPB SCH (13:08)
[2017-12-20 13:13] VITALS: BP 111/76; TEMP 98.1
--- NOTE | 2017-12-20 17:08 | DIS ---
DATE OF ADMISSION: 12/18/2017 DATE OF DISCHARGE: 12/20/2017 ADMITTING DIAGNOSIS: Fever. DISCHARGE DIAGNOSIS: Fever of unknown source. SECONDARY DIAGNOSES: 1. History of Crohn's disease. 2. Acute right upper quadrant pain. 3. Acute hepatitis. 4. History of chronic alcoholism. CONSULTANTS INVOLVED IN THIS CARE: Dr. Duglas Barr from Gastroenterology. INVESTIGATIONS DONE DURING THIS ADMISSION: 1. Right upper quadrant ultrasound was showing dilated gallbladder wall. 2. HIDA scan ruled out any evidence of cholecystitis. 3. The patient had a colonoscopy, which was unremarkable and did not show any evidence of polyps or any sigmoid diverticulosis or any evidence of internal hemorrhoids. Everything looks fine. HISTORY OF PRESENT ILLNESS/HOSPITAL COURSE: In brief, this is a 42-year-old white male who was recen tly admitted for similar complaints of fever and was thoroughly evaluated with a CT abdomen and close monitoring and was discharged back to [facility]. The patient will return back at this time again with a fever of 103 and blood cultures were obtained, which did not grow any bacteria and culture was negati ve. The patient also had a lactic acid, which was negative, did not show any evidence of sepsis. Pr ocalcitonin was also ordered, which was in the normal range, which is an evidence that the patient di d not have any bacterial infection. The patient had mildly elevated liver enzymes of 183 and was hav ing tenderness in the right upper quadrant. Ultrasound of the right upper quadrant revealed no evide nce of any cholecystitis and HIDA scan confirmed that. The patient also had a GI evaluation done, fo llowed by colonoscopy, which was unremarkable. The patient was reassured that the fever he could be getting is from the possible hepatitis and on the day of the discharge, he had a repeat CMP done [facility] h showed a normalization of his liver enzymes. The patient always complained of 8 on 10 intensity pa in, but was always seen very comfortably, sitting on the bed. The patient has a known history of chr onic alcoholism, but he is since in halfway, he is not on any alcohol. No evidence of any alcohol withd rawals were noted. The patient was discharged back to halfway after a complete negative workup and reas sured the patient. PHYSICAL EXAMINATION: On day of discharge, VITAL SIGNS: Blood pressures are 111/76, heart rate is 72, respirations 16, saturation 96% on room a ir. GENERAL: The patient is moderately built and moderately nourished, does not appear to be in acute di stress. CARDIOVASCULAR: S1, S2 normal. No murmurs, rubs or gallops. LUNGS: Bilateral air entry was equal. No wheezing, no crackles. ABDOMEN: Soft, nontender, no guarding, no rebound tenderness. Bowel sounds normal. DISCHARGE MEDICATIONS: The patient is on Protonix 40 mg p.o. daily. DISCHARGE INSTRUCTIONS: Continue activity as tolerated, advised to follow up with primary care physi mitchell in 2-3 weeks. Advised to follow up with GI in 2 weeks for hepatitis. I reassured the patient that the fever could be from the viral hepatitis. The patient is discharged back to halfway in stable condition. I spent 30 minutes with this patient on the day of discharge.
== END 2017-12-20 15:07 | DRG 442 ==
LOC: ERS 22:08 → T4-B 23:34
PROVIDERS: ADMIT Internal Medicine; ATTEND Internal Medicine
PROC: 0DJD8ZZ Inspection of Lower Intestinal Tract, Via Natural or Artificial Opening Endoscopic (ICD-10-PCS; principal; 2017-12-19)
DX: B17.10 Acute hepatitis C without hepatic coma (principal); K50.90 Crohn's disease, unspecified, without complications; F20.9 Schizophrenia, unspecified; B18.2 Chronic viral hepatitis C; F31.9 Bipolar disorder, unspecified; G89.29 Other chronic pain; M54.5 Low back pain; G40.909 Epilepsy, unspecified, not intractable, without status epilepticus; F17.220 Nicotine dependence, chewing tobacco, uncomplicated; K57.30 Diverticulosis of large intestine without perforation or abscess without bleeding; K64.8 Other hemorrhoids; F10.20 Alcohol dependence, uncomplicated; Z23 Encounter for immunization
CPT/HCPCS: 36415; 71045; 76705; 78227; 80053; 82274; 82330; 82803; 83605; 83630; 84145; 87040; 87081; 87430; 87804; 93005; 96361; 96365; 96374; A4216; A9537; J0696; J1885; J2001; J2270; J2704; J3370; J3411; J3490; J7050; Q0162

== ENCOUNTER 2019-01-18 14:01 | Emergency (ER) | payer OTHER, SELFPAY ==
--- NOTE | 2019-01-18 16:26 | MRI ---
MRI thoracic spine noncontrast: DATE: 01/18/2019 HISTORY: 43-year-old male with severe thoracic spine pain and right lower extremity weakness. COMPARISON: None FINDINGS: Vertebral body heights are maintained. Bone marrow signal is normal. There is no significant central spinal canal stenosis or severe neural foraminal stenosis, at any level. There are mild discogenic degenerative changes with central and left paracentral small focal disc herniations at T6-7, T7-T8, a nd T8-9, all of which contact and minimally indent the left ventral aspect of the thoracic spinal cord, without significantly displacing spinal cord posteriorly within the spinal canal. Conus medulla ris terminates at T12-L1. Perivertebral spaces are unremarkable. IMPRESSION: 1. Mild discogenic degenerative changes at T6-7, T7-8, and T8-9, where there are central and left par acentral small focal disc herniations that contact and minimally indent the spinal cord. 2. Otherwise negative
[2019-01-18] MEDS ORDERED: Morphine 4 MG/ML VIAL ONE (16:30)
--- NOTE | 2019-01-18 16:50 | MRI ---
MRI lumbar spine noncontrast: DATE: 01/18/2019 HISTORY: 43-year-old male with low back pain and right lower extremity weakness. COMPARISON: None FINDINGS: 5 lumbar-type vertebrae. Conus medullaris terminates at T12-L1. Vertebral body heights are maintained . No destructive osseous changes at endplates to indicate discitis-osteomyelitis. Cauda equina is arranged in a symmetrical, normal distribution throughout the thecal sac. There are noted type II kelley nges at the anterior superior corner of L4. Otherwise, bone marrow signal is normal. Bladder is distended. There are streaks of hyperintense T2 signal consistent with edema in the left posterior paraspinal mu sculature, actually in fascial planes between muscle bundles. This is true to a lesser degree on the contralateral right side. There is moderate disc space narrowing and disc desiccation at L3-4. Th e rest of the disc spaces are maintained. Mild disc desiccation at L2-3. The rest of the discs have normal signal. T12-L1:Normal L1-2: Normal L2-3: :Mild disc bulge. Mild thecal sac stenosis. Minimal central bony spinal canal stenosis. Mild ri ght neural foraminal stenosis. There is left lateral and far lateral focal disc herniation causing mild to moderate left neural foraminal stenosis. L3-4: Mild disc bulge. Mild bilateral neural foraminal stenosis. Mild central spinal canal stenosis. Left lateral and far lateral disc herniation mildly deflects the path of the left L3 nerve root just lateral to the neural foramen. Annular fissure associated with this far lateral disc herniation. L4-5: Moderate-severe right facet osteoarthrosis with multiple subchondral cysts. Mild bone marrow ed patricia involving right facet complex. Adjacent surrounding soft tissue edema around the right facet complex. Moderate right neural foraminal stenosis. Mild to moderate left neural foraminal stenosis. N o central stenosis. L5-S1:Essentially normal IMPRESSION: 1) mild lumbar spondylosis, including mild degenerative disc disease at L2-3 and L3-4, where there ar e left far lateral disc herniations. 2) high-grade right facet arthritis at L4-5 plus surrounding soft tissue edema. 3) edema in left posterior paraspinal musculature, questionable muscle strain. 4) no evidence of discitis-osteomyelitis. 5) no high-grade central spinal canal stenosis at any level.
[2019-01-18 16:52] LABS: Hemoglobin 14.7 g/dL (14.0-18.0); Mean Corpuscular HGB CONC 34.1 g/dL (32.0-36.0); Mean Corpuscular Hemoglobin 33.2 pg (27.0-31.0); Mean Corpuscular Volume 97.2 fL (78.0-98.0); Mean Platelet Volume 7.5 fL (7.4-10.4); Platelet Count 226 thou/uL (130-400); RBC Distribution Width 13.5 % (11.5-14.5); Red Blood Cell (RBC) Count 4.44 mill/uL (4.70-6.10); White Blood Cell (WBC) Count 5.8 thou/uL (4.8-10.8)
[2019-01-18 17:04] LABS: Eosinophils 1 % (0-10); Lymphocytes 66 % (21-51); MDiff Complete? YES; Monocytes 6 % (0-10); Neutrophil 27 % (42-75); Platelet Morphology Comment Appears Adequate; RBC Morphology Normal
[2019-01-18] MEDS ORDERED: Dexamethasone 4 MG TAB ONE (17:18)
[2019-01-18] MEDS ORDERED: HYDROcodone/Acetaminophen 10/325 mg Tablet ONE (17:18)
[2019-01-18 17:38] LABS: ALT (SGPT) 329 U/L (8-55); AST (SGOT) 279 U/L (5-34); Albumin 4.4 g/dL (3.5-5.0); Alkaline Phosphatase 69 U/L (40-150); Anion Gap 15 mmol/L (10-20); BUN (Urea Nitrogen) 11 mg/dL (8.9-20.6); Bilirubin, Total 0.4 mg/dL (0.2-1.2); Calc. Creatinine Clearance 0 mL/min (70-130); Calcium 8.8 mg/dL (7.8-10.44); Carbon Dioxide 25 mmol/L (22-29); Chloride 104 mmol/L (98-107); Estimated GFR-MDRD 82; Globulin 3.4 g/dL (2.4-3.5); Glucose 101 mg/dL (70-105); Potassium 4.3 mmol/L (3.5-5.1); Protein, Total 7.8 g/dL (6.0-8.3); Sodium 140 mmol/L (136-145)
== END 2019-01-18 17:40 | disposition home or self-care (01) ==
LOC: ERS 14:01
DX: M54.5 Low back pain (principal); G89.29 Other chronic pain; I10 Essential (primary) hypertension; F41.9 Anxiety disorder, unspecified; F20.9 Schizophrenia, unspecified; Z79.899 Other long term (current) drug therapy; Z79.1 Long term (current) use of non-steroidal anti-inflammatories (NSAID)
CPT/HCPCS: 72157; 72158; 80053; 85025; 85652; 96361; 96374; J2270; J8540